=== PATIENT | male | born 1970 ===

== ENCOUNTER 2018-10-14 16:06 | Emergency (ER) | payer OTHER ==
[2018-10-14] MEDS ORDERED: Lidocaine 2% w Epi 1:200,000 Pf Inj INJ ONE (16:46)
[2018-10-14] MEDS ORDERED: Tetanus/Diphtheria Toxoids 0.5 ml Syringe IM ONE ×2 (16:46→17:40)
--- NOTE | 2018-10-14 16:49 | C.PDOC ---
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 Patient states that he accidentally cut himself with a knife [employer]PUT[employer]IEF SHERIFF. He denies any other symptoms or injuries. 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 NO OTHER SX, INJ EXAM NONTOXIC SKIN 3 CM LAC DORSAL R HAND NO ACTIVE BLEED REMAINDER NEG Chief Complaint (Nursing): Abnormal Skin Integrity History Per: Patient History/Exam Limitations: no limitations Onset/Duration Of Symptoms: Hrs Location Of Injury: Right: Hand Recent travel outside of the [place]: No Additional History Per: Patient Past Medical History Reviewed: Historical Data, Nursing Documentation, Vital Signs Vital Signs: Last Vital Signs Temp 98.1 F 10/14/18 16:39 Pulse 84 10/14/18 16:39 Resp 12 10/14/18 16:39 BP 134/85 10/14/18 16:39 Pulse Ox 98 10/14/18 16:39 - Medical History PMH: No Chronic Diseases Surgical History: Cholecystectomy Family History: States: No Known Family Hx - Social History Hx Alcohol Use: No Hx Substance Use: No - Immunization History Hx Tetanus Toxoid Vaccination: No (Unsure of last) Hx Influenza Vaccination: No Hx Pneumococcal Vaccination: No Review Of Systems Except As Marked, All Systems Reviewed And Found Negative. Musculoskeletal: Positive for: Hand Pain (right hand laceration) Physical Exam - Physical Exam Appears: Non-toxic, No Acute Distress Skin: Other (3 CM LAC DORSAL R HAND NO ACTIVE BLEED) Head: Atraumatic, Normacephalic Neck: Supple Chest: Symmetrical, No Deformity Cardiovascular: Rhythm Regular, No Murmur Respiratory: Other (NARD) Neurological/Psych: Oriented x3 ED Course And Treatment O2 Sat by Pulse Oximetry: 98 (on RA) Pulse Ox Interpretation: Normal Progress Note: Plan: Tetanus. [id number] INJ Laceration - Laceration Repair No standard instances Wound Length (In cm): 3 Description Of Wound: Linear Wound Cleansed With: Sterile Saline Anesthesia: Lidocaine 1%, With Epi Wound Examination: Irrigated With Saline, No FB With Wound Exploration, No Tendon Injury With Wound Exploration Wound Closure: Suture (4) Suture Technique And Material Used: Prolene (3.0) Wound Complexity: Simple Disposition Counseled Patient/Family Regarding: Diagnosis, Need For Followup - Disposition Referrals: [facility] [Provider Group] Disposition: HOME/ ROUTINE Disposition Time: 17:30 Condition: IMPROVED Additional Instructions: REX 7-10 FLORES PARA LA REMOCIN SUTURA Instructions: Laceration Repair With Stitches (DC) Forms: [facility] (Tajik), Work Excuse Print Language: ALBANIAN - Clinical Impression Clinical Impression: Hand laceration - Scribe Statement The provider has reviewed the documentation as recorded by the Sallyibsamuel Funk All medical record entries made by the Sallyibsamuel were at my direction and personally dictated by me. I have reviewed the chart and agree that the record accurately reflects my personal performance of the history, physical exam, medical decision making, and the department course for this patient. I have also personally directed, reviewed, and agree with the discharge instructions and disposition.
[2018-10-14 16:54] VITALS: BP 134/85; PULSE 84; RESP 12; TEMP 98.1; O2SAT 98
[2018-10-14] MEDS ORDERED: Bacitracin 500 Units/gm Oint Foilpak UD ONE (17:46)
== END 2018-10-14 17:50 | disposition home or self-care (01) ==
LOC: C.ER 16:06
DX: S61.411A Laceration without foreign body of right hand, initial encounter (principal); W26.0XXA Contact with knife, initial encounter; Z23 Encounter for immunization